=== PATIENT | male | born 1980 | race American Indian/Alaskan Native ===

== ENCOUNTER 2019-06-20 09:51 | Outpatient (CLI) | payer MEDICAID | END 2019-06-20 09:52 | disposition home or self-care (01) | LOC: LAB 09:51 | PROVIDERS: ATTEND Internal Medicine | DX: E55.9 Vitamin D deficiency, unspecified (principal) | CPT/HCPCS: 36415; 82306; 82607 ==

== ENCOUNTER 2019-07-04 12:06 | Outpatient (CLI) | payer MEDICAID ==
[2019-07-04 12:57] LABS: Bilirubin,Urine NEG (Negative); Blood,Urine NEG (Negative); Color,Urine Yellow (Yellow); Protein,Urine <15 mg/dL mg/dL (Negative); Urobilinogen,Urine < 2.0 mg/dL (<2.0); WBC,Urine < 1.0 /HPF (0.0-6.0)
[2019-07-04 12:59] LABS: Alanine Aminotransferase 18 units/L (7-56); BUN/Creatinine Ratio 11; Blood Urea Nitrogen 11 mg/dL (9-20); Calcium 10.1 mg/dL (8.4-10.2); Hemolysis Index 7
== END 2019-07-04 12:07 | disposition home or self-care (01) ==
LOC: LAB 12:06
PROVIDERS: ATTEND Internal Medicine
DX: R35.0 Frequency of micturition (principal)
CPT/HCPCS: 36415; 80053; 81001; 83930